=== PATIENT | male | born 1950 | race Caucasian/White ===

== ENCOUNTER 2018-12-17 08:20 | Day surgery (SDC) | payer OTHER ==
[2018-12-16 10:40] LABS: HEMATOCRIT 42.3 % (42.0-54.0); HEMOGLOBIN 14.6 g/dL (13.5-17.5); MCH 31.8 pg (26.0-34.0); MCHC 34.5 g/dL (31.0-37.0); MCV 92.2 fL (80.0-100.0); MEAN PLATELET VOLUME 9.9 fL (7.4-10.4); RBC 4.59 10x6/uL (4.20-6.10); RDW 12.6 % (11.5-14.5); WBC 6.1 10x3/uL (4.8-10.8)
[2018-12-16 11:01] LABS: ANION GAP 11.9 mmol/L (8-16); CALCIUM 9.3 mg/dL (8.5-10.1); CARBON DIOXIDE 27.7 mmol/L (21.0-32.0); CREATININE - SERUM 1.3 mg/dL (0.6-1.3); POTASSIUM - SERUM 4.6 mmol/L (3.5-5.1)
[~2018-12-17] VITALS: Ht 177.8 cm; Wt 87.5 kg
[~2018-12-17 08:20] MED LIST: BENICAR20 MG PO; GLUCOPHAGE1000 MG PO; ZOCOR20 MG PO
[2018-12-17 08:39] VITALS: BP 142/75; Ht 177.8 cm; Wt 87.5 kg
[2018-12-17] MEDS ORDERED: HYDROCODON-ACE1 EAC7 PO (13:00)
[2018-12-17] MEDS ORDERED: MIRALAX17 GM PO (13:01)
[2018-12-17] MEDS ORDERED: TUCKS MEDICATE1 EACH TOPICAL (13:01)
[2018-12-17] MEDS ORDERED: VALIUM5 MG PO (13:01)
--- NOTE | 2018-12-17 13:40 | NUR ---
REC'D FROM RR. FAMILY AT BEDSIDE. LEMON SH[place] BROUGHT TO PT. EXPLAINED MIN. TIME IN OUTPATIENT IS 1 HR AND DC CRITERIA IS BEING ABLE TO EAT WITHOUT NAUSEA AND ABLE TO VOID. VERBALIZED UNDERSTANDING.
--- NOTE | 2018-12-17 14:10 | NUR ---
MY BARRETT BROUGHT TO PT. FAMILY AT BEDSIDE. NO CHANGES NOTED.
--- NOTE | 2018-12-17 14:40 | NUR ---
DR EPPS IN AND TALKING WITH PATIENT AND FAMILY.
--- NOTE | 2018-12-17 14:50 | NUR ---
TOLERATED FL DIET. AMBULATED TO THE BATHROOM AND VOIDED WITHOUT DIFFICULTY. IV DC'D WITH CATHETER INTACT.
--- NOTE | 2018-12-17 15:00 | NUR ---
WRITTEN AND VERBAL DC INST. GIVEN TO PT. VERBALIZED UNDERSTANDING.
--- NOTE | 2018-12-17 15:05 | NUR ---
DC'D HOME WITH FAMILY VIA PRIVATE VEHICLE. TAKEN TO VEHICLE VIA WC. STABLE AT TIME OF DC.
== END 2018-12-17 15:05 | disposition home or self-care (01) ==
LOC: D.OPS 08:20 → D.PAN 10:30 → D.OPS 10:30
PROVIDERS: Anesthesiology
DX: K64.3 Fourth degree hemorrhoids (principal); K62.1 Rectal polyp; I10 Essential (primary) hypertension; Z01.812 Encounter for preprocedural laboratory examination